=== PATIENT | male | born 1970 | race Two or more races ===

== ENCOUNTER 2018-05-19 03:17 | Inpatient (IN) | payer MEDICAID, OTHER ==
[2018-05-19] VITALS (55 sets, daily range): BP systolic 74–144; BP diastolic 36–87
[~2018-05-19] VITALS: Ht 172.7 cm; Wt 81.6 kg
[2018-05-19] MEDS ORDERED: ETOMIDATE 2MG/ML 10ML VIAL IV ONE ×2 (03:49→04:00)
[2018-05-19] MEDS ORDERED: SUCCINYLCHOLINE CHLORIDE 200MG/10ML IV ONE ×2 (03:49→04:00)
[2018-05-19] MEDS ORDERED: ONDANSETRON HCL 4MG/2ML INJ IV STA (03:51)
[2018-05-19] MEDS ORDERED: SODIUM CHLORIDE 0.9% 1,000 ML IV ONE (03:51)
[2018-05-19] MEDS ORDERED: MIDAZOLAM HCL 2 MG/2 ML VIAL ONE (03:59)
[2018-05-19] MEDS ORDERED: MIDAZOLAM HCL 2 MG/2 ML VIAL IV ONE (04:00)
[2018-05-19] MEDS ORDERED: LEVETIRACETAM 500MG PREMIX 100 ML IV SCH (04:00)
[2018-05-19] MEDS ORDERED: PROPOFOL 10MG/ML 100ML 100 ML IV ONE (04:00)
[2018-05-19] MEDS ORDERED: LEVETIRACETAM 500MG PREMIX 100 ML IV ONE (04:00)
[2018-05-19] MEDS ORDERED: NICARDIPINE 100 MG in SODIUM CHLORIDE 0.9% 60 ML IV ONE (04:15)
[2018-05-19] MEDS ORDERED: NICARDIPINE 40MG/200ML PREMIX 200 ML IV SCH (04:15)
[2018-05-19] MEDS ORDERED: NICARDIPINE 100 MG in SODIUM CHLORIDE 0.9% 60 ML IV SCH (04:15)
[2018-05-19 04:37] LABS: BASOPHILS % 0.3 % (0.0-2.0); EOSINOPHILS % 0.3 % (0.0-5.0); HEMATOCRIT. 42.8 % (42.0-52.0); HEMOGLOBIN. 15.2 g/dL (14.0-18.0); LYMPHOCYTES % 12.3 % (20.0-50.0); MEAN CORPUSCULAR HEMOGLOBIN 35.3 pg (28.0-32.0); MEAN CORPUSCULAR VOLUME 99.6 fL (80.0-94.0); MONOCYTES % 7.8 % (2.0-8.0); NEUTROPHILS % 79.3 % (40.0-76.0); RED CELL DISTRIBUTION WIDTH 14.9 % (11.6-14.6)
[2018-05-19 04:39] LABS: CHLORIDE 106 mEq/L (98-107)
[2018-05-19 04:42] LABS: INR 1.5
[2018-05-19 04:43] LABS: ETHANOL BLOOD 119 mg/dL
[2018-05-19 04:56] LABS: BG BASE EXCESS -6.6 mmol/L (-2.0-2.0); BG CARBOXYHEMOGLOBIN 0.9 % (0.5-1.5); BG DEOXYHEMOGLOBIN 0.5 % (0.0-5.0); BG FRACTION INSPIRED OXYGEN 100; BG HCO3 ACT 16.1 mmol/L (22.0-26.0); BG METHEMOGLOBIN 0.3 % (0.0-1.5); BG OXYGEN SATURATION 99.5 % (92.0-98.5); BG OXYHEMOGLOBIN 98.3 % (94.0-97.0); BG PCO2 26.2 mmHg (35.0-45.0); BG PH 7.406 (7.350-7.450); BG PO2 508.6 mmHg (75.0-100.0); BG SAMPLE SITE RIGHT RADIAL; BG TIDAL VOLUME(mL) 500 mL; BG TOTAL HEMOGLOBIN 16.3 g/dL (12.0-18.0); BG VENT MODE VENT - A/C; BG VENT RATE 16 set
[2018-05-19] MEDS ORDERED: DESMOPRESSIN ACETATE 4MCG/ML AMP IV ONE (05:45)
[2018-05-19] MEDS ORDERED: MANNITOL 20% (20GM/100ML) BAG 500ML PREMIX IV ONE (06:30)
[2018-05-19] MEDS ORDERED: DESMOPRESSIN ACETATE IVPB 20 MCG in SODIUM CHLORIDE 0.9% 50 ML IV SCH (06:30)
[2018-05-19] MEDS ORDERED: IOHEXOL-350 100 ML BOTTLE ONE (06:43)
[2018-05-19] MEDS ORDERED: DEXAMETHASONE 10 MG/ML VIAL IV ONE (07:00)
[2018-05-19] MEDS ORDERED: MANNITOL 20% 250 ML IV NR (07:15)
[2018-05-19] MEDS ORDERED: NICARDIPINE 100 MG in SODIUM CHLORIDE 0.9% 60 ML IV PRN (09:00)
[2018-05-19] MEDS ORDERED: IPRATROPIUM/ALBUTEROL 0.5-3(2.5)MG/3ML NEB INH PRN (09:00)
[2018-05-19] MEDS ORDERED: ACETAMINOPHEN 650MG SUPP PR PRN (09:00)
[2018-05-19] MEDS ORDERED: ONDANSETRON HCL 4MG/2ML INJ IV PRN (09:00)
[2018-05-19] MEDS ORDERED: PHYTONADIONE 10MG/ML AMP SUBCUT NR (09:15)
[2018-05-19] MEDS: DEXT 5%/LACTATED RINGERS 1,000 ML IV SCH ×2 (09:23→22:05)
[2018-05-19] MEDS: LEVETIRACETAM 500 MG in SODIUM CHLORIDE 0.9% 100 ML IV SCH ×2 (10:12→20:06)
[2018-05-19] MEDS: PHENYLEPHRINE 40 MG in DEXT 5% WATER 246 ML IV PRN ×2 (10:12→17:11)
[2018-05-19] MEDS ORDERED: NITROPRUSSIDE 50 MG in DEXT 5% WATER 248 ML IV PRN (10:30)
[2018-05-19 11:11] LABS: CLARITY URINE CLEAR (CLEAR); KETONES URINE NEGATIVE (NEGATIVE); LEUKOCYTE ESTERASE URINE NEGATIVE (NEGATIVE); NITRITE URINE NEGATIVE (NEGATIVE); OCCULT BLOOD URINE 2+ (NEGATIVE); PROTEIN URINE NEGATIVE (NEGATIVE); SPECIFIC GRAVITY URINE 1.031 (1.005-1.030); UROBILINOGEN URINE 0.2 E.U./dL (0.2-1.0)
[2018-05-19 11:13] LABS: COLOR URINE PALE YELLOW (YELLOW)
[2018-05-19 11:39] LABS: *AMPHETAMINES SCREEN URINE NEGATIVE (NEGATIVE); *BARBITURATES SCREEN URINE NEGATIVE (NEGATIVE); *BENZODIAZEPINES SCREEN URINE PRESUMTIVE POSITIVE (NEGATIVE); *COCAINE SCREEN URINE NEGATIVE (NEGATIVE); METHADONE URINE SCREEN NEGATIVE (NEGATIVE); OPIATES URINE SCREEN NEGATIVE (NEGATIVE)
[2018-05-19 11:40] LABS: CANNABINOID URINE SCREEN NEGATIVE (NEGATIVE); PHENCYCLIDINE URINE SCREEN NEGATIVE (NEGATIVE)
[2018-05-19] MEDS: IPRATROPIUM BROMIDE (0.02%) 0.5MG/2.5ML NEB HHN SCH ×3 (12:00→20:23)
[2018-05-19] MEDS ORDERED: NITROPRUSSIDE 50 MG in SODIUM CHLORIDE 0.9% 248 ML IV PRN (12:00)
[2018-05-19] MEDS: PANTOPRAZOLE SODIUM 40 MG/VIAL IV SCH (12:39)
[2018-05-19] MEDS: DEXAMETHASONE 4MG/ML 1ML VIAL IV SCH ×2 (12:39→17:13)
[2018-05-19] MEDS: PIPERACILLIN/TAZ 3.375G PREMIX 50 ML IV SCH ×2 (12:41→17:13)
[2018-05-19] MEDS ORDERED: VANCOMYCIN 1250MG in DEXTROSE 5% WATER 250ML IV SCH (13:00)
[2018-05-19] MEDS ORDERED: INFLUENZA VIRUS VACCINE(AFLURIA) 0.5ML SYR IM ONE (14:00)
[2018-05-19] MEDS ORDERED: PNEUMOCOCCAL 23-VAL P-SAC VAC 0.5 ML IM ONE (14:00)
[2018-05-19 15:49] LABS: BG BASE EXCESS 0.2 mmol/L (-2.0-2.0); BG CARBOXYHEMOGLOBIN 0.8 % (0.5-1.5); BG DEOXYHEMOGLOBIN 0.3 % (0.0-5.0); BG FRACTION INSPIRED OXYGEN 100; BG HCO3 ACT 26.4 mmol/L (22.0-26.0); BG METHEMOGLOBIN 0.4 % (0.0-1.5); BG OXYGEN SATURATION 99.7 % (92.0-98.5); BG OXYHEMOGLOBIN 98.5 % (94.0-97.0); BG PCO2 48.7 mmHg (35.0-45.0); BG PH 7.352 (7.350-7.450); BG PO2 481.8 mmHg (75.0-100.0); BG SAMPLE SITE RIGHT RADIAL; BG TIDAL VOLUME(mL) 500 mL; BG TOTAL HEMOGLOBIN 14.5 g/dL (12.0-18.0); BG VENT MODE VENT - A/C; BG VENT RATE 14 set
[2018-05-19 16:01] LABS: BG BASE EXCESS -7.3 mmol/L (-2.0-2.0); BG CARBOXYHEMOGLOBIN 0.9 % (0.5-1.5); BG DEOXYHEMOGLOBIN 0.5 % (0.0-5.0); BG FRACTION INSPIRED OXYGEN 70; BG HCO3 ACT 19.9 mmol/L (22.0-26.0); BG METHEMOGLOBIN 0.5 % (0.0-1.5); BG OXYGEN SATURATION 99.5 % (92.0-98.5); BG OXYHEMOGLOBIN 98.1 % (94.0-97.0); BG PCO2 46.4 mmHg (35.0-45.0); BG PO2 327.8 mmHg (75.0-100.0); BG SAMPLE SITE RIGHT RADIAL; BG TOTAL HEMOGLOBIN 14.1 g/dL (12.0-18.0); BG VENT MODE NASAL CANNULA
[2018-05-19] MEDS: VANCOMYCIN 1 G PREMIX 200 ML IV SCH (21:02)
[2018-05-20] VITALS (24 sets, daily range): BP systolic 97–115; BP diastolic 50–67
[2018-05-20] MEDS: DEXAMETHASONE 4MG/ML 1ML VIAL IV SCH ×2 (00:16→05:06)
[2018-05-20] MEDS: PIPERACILLIN/TAZ 3.375G PREMIX 50 ML IV SCH ×2 (00:16→05:06)
[2018-05-20] MEDS: IPRATROPIUM BROMIDE (0.02%) 0.5MG/2.5ML NEB HHN SCH ×5 (00:29→16:35)
[2018-05-20] MEDS: VANCOMYCIN 1 G PREMIX 200 ML IV SCH (05:06)
[2018-05-20] MEDS: LEVETIRACETAM 500 MG in SODIUM CHLORIDE 0.9% 100 ML IV SCH (08:17)
[2018-05-20] MEDS: PANTOPRAZOLE SODIUM 40 MG/VIAL IV SCH (08:17)
[2018-05-20 09:10] LABS: BG BASE EXCESS -0.2 mmol/L (-2.0-2.0); BG CARBOXYHEMOGLOBIN 0.7 % (0.5-1.5); BG DEOXYHEMOGLOBIN 0.4 % (0.0-5.0); BG HCO3 ACT 25.6 mmol/L (22.0-26.0); BG METHEMOGLOBIN 0.4 % (0.0-1.5); BG OXYGEN SATURATION 99.6 % (92.0-98.5); BG OXYHEMOGLOBIN 98.5 % (94.0-97.0); BG PCO2 45.9 mmHg (35.0-45.0); BG PH 7.364 (7.350-7.450); BG PO2 378.2 mmHg (75.0-100.0); BG SAMPLE SITE RIGHT RADIAL; BG TIDAL VOLUME(mL) 500 mL; BG TOTAL HEMOGLOBIN 13.9 g/dL (12.0-18.0); BG VENT MODE VENT - A/C; BG VENT RATE 14 set
[2018-05-20 09:24] LABS: BG BASE EXCESS 0.4 mmol/L (-2.0-2.0); BG CARBOXYHEMOGLOBIN 0.6 % (0.5-1.5); BG DEOXYHEMOGLOBIN 0.6 % (0.0-5.0); BG HCO3 ACT 29.4 mmol/L (22.0-26.0); BG METHEMOGLOBIN 0.4 % (0.0-1.5); BG OXYGEN SATURATION 99.4 % (92.0-98.5); BG OXYHEMOGLOBIN 98.4 % (94.0-97.0); BG PCO2 68.6 mmHg (35.0-45.0); BG PO2 314.9 mmHg (75.0-100.0); BG SAMPLE SITE RIGHT RADIAL; BG TOTAL HEMOGLOBIN 13.9 g/dL (12.0-18.0); BG VENT MODE NASAL CANNULA
[2018-05-20] MEDS ORDERED: MAGNESIUM 2 G PREMIX 50 ML IV SCH (14:00)
[2018-05-20] MEDS ORDERED: VANCOMYCIN 1 G PREMIX 200 ML IV SCH (18:00)
[2018-05-21 10:09] LABS: PLATELET 34 x1000/uL (130-400)
== END 2018-05-20 09:49 | disposition expired | DRG 720 ==
LOC: ER 03:17 → MICUSO 06:21 → EDBD 06:21 → EDBEDREQTM 06:25 → EDBEDREQ 06:25 → ENRESERV 07:50
PROVIDERS: ADMIT Internal Medicine; ATTEND Internal Medicine
PROC: 0BH17EZ Insertion of Endotracheal Airway into Trachea, Via Natural or Artificial Opening (ICD-10-PCS; principal; 2018-05-19)
PROC: 5A1945Z Respiratory Ventilation, 24-96 Consecutive Hours (ICD-10-PCS; 2018-05-19)
PROC: 30233L1 Transfusion of Nonautologous Fresh Plasma into Peripheral Vein, Percutaneous Approach (ICD-10-PCS; 2018-05-19)
PROC: 30233K1 Transfusion of Nonautologous Frozen Plasma into Peripheral Vein, Percutaneous Approach (ICD-10-PCS; 2018-05-19)
DX: A41.9 Sepsis, unspecified organism (principal); I61.8 Other nontraumatic intracerebral hemorrhage; E43 Unspecified severe protein-calorie malnutrition; J96.00 Acute respiratory failure, unspecified whether with hypoxia or hypercapnia; J69.0 Pneumonitis due to inhalation of food and vomit; G93.49 Other encephalopathy; K70.30 Alcoholic cirrhosis of liver without ascites; K70.9 Alcoholic liver disease, unspecified; D68.9 Coagulation defect, unspecified; D69.6 Thrombocytopenia, unspecified; E87.6 Hypokalemia; F10.229 Alcohol dependence with intoxication, unspecified; I48.0 Paroxysmal atrial fibrillation; Y90.5 Blood alcohol level of 100-119 mg/100 ml; R40.2430 Glasgow coma scale score 3-8, unspecified time; R73.9 Hyperglycemia, unspecified; Z68.27 Body mass index [BMI] 27.0-27.9, adult
CPT/HCPCS: 36415; 36430; 36600; 70496; 71045; 80202; 80305; 82375; 82805; 83605; 83735; 84478; 84484; 86850; 86900; 86927; 93005; 93306; 93970; 94002; 94003; 94640; 96365; 96375; 99285; C9113; G0482; J0330; J1100; J1953; J2250; J2370; J2405; J2543; J2597; J2704; J3370; J3430; J3475; J3490; J7030; J7040; J7050; J7060; J7121; P9017; Q9967; A4315

== ENCOUNTER 2018-05-20 17:03 | Inpatient (IN) | payer OTHER ==
[~2018-05-20] VITALS: Ht 162.6 cm; Wt 76.2 kg
[2018-05-20 19:00] VITALS: BP 92/53
[2018-05-20 20:41] VITALS: BP 83/43
[2018-05-20 20:54] LABS: BG BASE EXCESS -3.4 mmol/L (-2.0-2.0); BG CARBOXYHEMOGLOBIN 0.5 % (0.5-1.5); BG DEOXYHEMOGLOBIN 2.9 % (0.0-5.0); BG FRACTION INSPIRED OXYGEN 100; BG METHEMOGLOBIN 0.2 % (0.0-1.5); BG OXYGEN SATURATION 97.1 % (92.0-98.5); BG OXYHEMOGLOBIN 96.4 % (94.0-97.0); BG PCO2 46.3 mmHg (35.0-45.0); BG PH 7.314 (7.350-7.450); BG PO2 94.8 mmHg (75.0-100.0); BG SAMPLE SITE A-LINE; BG TIDAL VOLUME(mL) 500 mL; BG TOTAL HEMOGLOBIN 13.8 g/dL (12.0-18.0); BG VENT MODE VENT - A/C; BG VENT RATE 14 set
[2018-05-20 21:48] VITALS: BP 94/68
[2018-05-20] MEDS ORDERED: NOREPINEPHRINE 4 MG in DEXT 5% WATER 246 ML IV ONE (22:00)
[2018-05-20] MEDS: VASOPRESSIN 100 UNIT in SODIUM CHLORIDE 0.9% 95 ML IV SCH (22:22)
[2018-05-20 22:45] VITALS: BP 99/68
[2018-05-20 23:15] VITALS: BP 121/71
[2018-05-20 23:28] LABS: HEMATOCRIT. 40.9 % (42.0-52.0); HEMOGLOBIN. 13.7 g/dL (14.0-18.0); MEAN CORPUSCULAR HEMOGLOBIN 34.6 pg (28.0-32.0); MEAN CORPUSCULAR VOLUME 103.3 fL (80.0-94.0); MEAN PLATELET VOLUME 11.7 fl (7.4-10.4); RED BLOOD CELL COUNT 3.96 mill/uL (4.7-6.1); RED CELL DISTRIBUTION WIDTH 14.5 % (11.6-14.6)
[2018-05-20 23:30] VITALS: BP 123/66
[2018-05-20 23:34] LABS: CHLORIDE 114 mEq/L (98-107)
[2018-05-20 23:36] LABS: INR 1.5; PARTIAL THROMBOPLASTIN TIME 32.3 sec (23.4-31.0); PROTHROMBIN TIME 14.7 sec (9.1-11.1)
[2018-05-20 23:39] LABS: AMYLASE 154 IU/L (25-115); PLATELET 32 x1000/uL (130-400)
[2018-05-20 23:40] LABS: PHOSPHORUS 4.9 mg/dL (2.5-4.9)
[2018-05-20 23:43] LABS: CREATINE KINASE 106 IU/L (39-308); CREATINE KINASE MB FRACTION 1.6 ng/mL (0.5-3.6)
[2018-05-21] VITALS (64 sets, daily range): BP systolic 0–124; BP diastolic 0–84
[2018-05-21] MEDS: HETASTARCH/NORMAL SALINE 500 ML PLAST..BAG IV NR ×2 (00:23→01:15)
[2018-05-21 00:34] LABS: PLATELET ESTIMATE MARKEDLY DECREASED
[2018-05-21] MEDS: NOREPINEPHRINE 4MG/250ML PMX 250 ML IV SCH ×2 (02:00→08:51)
[2018-05-21 02:24] LABS: BG BASE EXCESS -4.7 mmol/L (-2.0-2.0); BG CARBOXYHEMOGLOBIN 0.9 % (0.5-1.5); BG FRACTION INSPIRED OXYGEN 60; BG HCO3 ACT 18.8 mmol/L (22.0-26.0); BG METHEMOGLOBIN 0.1 % (0.0-1.5); BG PCO2 30.4 mmHg (35.0-45.0); BG PH 7.408 (7.350-7.450); BG PO2 104.2 mmHg (75.0-100.0); BG SAMPLE SITE A-LINE; BG TOTAL HEMOGLOBIN 13.9 g/dL (12.0-18.0); BG VENT MODE VENT- BI-LEVEL14; BG VENT RATE 14 set
[2018-05-21] MEDS ORDERED: INSULIN REGULAR (HUMULIN R) 300UNITS/3ML IV SCH ×2 (02:37→04:37)
[2018-05-21] MEDS: DOBUTAMINE 250MG PREMIX 250 ML IV SCH (02:45)
[2018-05-21] MEDS ORDERED: LEVOTHYROXINE SODIUM 100 MCG/ VIAL IV STA (04:34)
[2018-05-21 05:41] LABS: BG BASE EXCESS -5.7 mmol/L (-2.0-2.0); BG CARBOXYHEMOGLOBIN 0.8 % (0.5-1.5); BG DEOXYHEMOGLOBIN 1.1 % (0.0-5.0); BG FRACTION INSPIRED OXYGEN 40; BG HCO3 ACT 18.9 mmol/L (22.0-26.0); BG METHEMOGLOBIN 0.3 % (0.0-1.5); BG OXYGEN SATURATION 98.9 % (92.0-98.5); BG OXYHEMOGLOBIN 97.8 % (94.0-97.0); BG PCO2 34.5 mmHg (35.0-45.0); BG PH 7.357 (7.350-7.450); BG PO2 153.5 mmHg (75.0-100.0); BG SAMPLE SITE A-LINE; BG TOTAL HEMOGLOBIN 14.6 g/dL (12.0-18.0); BG VENT MODE VENT- BI-LEVEL; BG VENT RATE 12 set
[2018-05-21] MEDS ORDERED: ALBUMIN HUMAN 25GM/100ML (25%) IV SCH (05:44)
[2018-05-21 05:45] LABS: HEMATOCRIT. 40.4 % (42.0-52.0); HEMOGLOBIN. 13.9 g/dL (14.0-18.0); MEAN CORPUSCULAR HEMOGLOBIN 35.4 pg (28.0-32.0); MEAN CORPUSCULAR VOLUME 103.1 fL (80.0-94.0); MEAN PLATELET VOLUME 10.8 fl (7.4-10.4); RED BLOOD CELL COUNT 3.92 mill/uL (4.7-6.1); RED CELL DISTRIBUTION WIDTH 14.9 % (11.6-14.6)
[2018-05-21 05:48] LABS: INR 1.6; PARTIAL THROMBOPLASTIN TIME 35.4 sec (23.4-31.0); PROTHROMBIN TIME 16.1 sec (9.1-11.1)
[2018-05-21 05:59] LABS: CHLORIDE 115 mEq/L (98-107)
[2018-05-21] MEDS ORDERED: SODIUM CHLORIDE 0.9% IV SCH ×2 (06:00)
[2018-05-21] MEDS ORDERED: LEVOTHYROXINE SODIUM IV SCH (06:00)
[2018-05-21] MEDS ORDERED: METHYLPREDNISOLONE SOD SUCC IV SCH (06:00)
[2018-05-21 06:10] LABS: GAMMA GLUTAMYL TRANSPEPTIDASE 100 IU/L (11-50)
[2018-05-21 06:11] LABS: AMYLASE 454 IU/L (25-115)
[2018-05-21 06:12] LABS: PHOSPHORUS 3.5 mg/dL (2.5-4.9)
[2018-05-21 06:15] LABS: CREATINE KINASE 86 IU/L (39-308)
[2018-05-21 06:17] LABS: CREATINE KINASE MB FRACTION 1.5 ng/mL (0.5-3.6)
[2018-05-21 06:32] LABS: PLATELET 41 x1000/uL (130-400)
[2018-05-21] MEDS ORDERED: LIDOCAINE HCL 1% 20ML VIAL (Pyxis) INJ ONE (08:09)
[2018-05-21] MEDS ORDERED: HEPARIN 100 UNITS/1 ML VIAL IVF PRN (09:00)
[2018-05-21] MEDS ORDERED: HETASTARCH/NORMAL SALINE 500 ML PLAST..BAG IV NR (10:30)
[2018-05-21] MEDS: PIPERACILLIN/TAZ 2.25G PREMIX 50 ML IV SCH ×2 (10:57→17:13)
[2018-05-21] MEDS: INSULIN REGULAR (DRIP) 100 UNITS in SODIUM CHLORIDE 0.9% 99 ML IV PRN ×2 (11:35→19:03)
[2018-05-21 12:12] LABS: ATYPICAL LYMPHOCYTES 1; NUCLEATED RED BLOOD CELLS 1 /100 WBC; PLATELET ESTIMATE MARKEDLY DECREASED
[2018-05-21 12:16] LABS: BG BASE EXCESS -5.4 mmol/L (-2.0-2.0); BG CARBOXYHEMOGLOBIN 0.7 % (0.5-1.5); BG FRACTION INSPIRED OXYGEN 40; BG HCO3 ACT 18.9 mmol/L (22.0-26.0); BG METHEMOGLOBIN 0.3 % (0.0-1.5); BG PCO2 33.1 mmHg (35.0-45.0); BG PH 7.374 (7.350-7.450); BG PO2 176.3 mmHg (75.0-100.0); BG SAMPLE SITE A-LINE; BG TOTAL HEMOGLOBIN 12.7 g/dL (12.0-18.0); BG VENT MODE VENT - BI-LEVEL; BG VENT RATE 14 set
[2018-05-21 12:53] LABS: CHLORIDE 115 mEq/L (98-107)
[2018-05-21 12:54] LABS: INR 1.7; PARTIAL THROMBOPLASTIN TIME 40.4 sec (23.4-31.0); PROTHROMBIN TIME 17.1 sec (9.1-11.1)
[2018-05-21 13:02] LABS: AMYLASE 547 IU/L (25-115); PHOSPHORUS 4.6 mg/dL (2.5-4.9)
[2018-05-21 13:05] LABS: CREATINE KINASE 69 IU/L (39-308); CREATINE KINASE MB FRACTION 1.9 ng/mL (0.5-3.6); GAMMA GLUTAMYL TRANSPEPTIDASE 78 IU/L (11-50)
[2018-05-21 13:07] LABS: HEMATOCRIT. 35.4 % (42.0-52.0); HEMOGLOBIN. 12.1 g/dL (14.0-18.0); MEAN CORPUSCULAR HEMOGLOBIN 35.5 pg (28.0-32.0); MEAN CORPUSCULAR VOLUME 103.6 fL (80.0-94.0); MEAN PLATELET VOLUME 11.1 fl (7.4-10.4); RED BLOOD CELL COUNT 3.42 mill/uL (4.7-6.1)
[2018-05-21] MEDS: METHYLPREDNISOLONE SOD SUCC 500 MG in SODIUM CHLORIDE 0.9% 100 ML IV SCH ×2 (13:09→20:55)
[2018-05-21 13:14] LABS: PLATELET 30 x1000/uL (130-400)
[2018-05-21] MEDS ORDERED: CALCIUM GLUCONATE 1,000 MG in DEXT 5% WATER 90 ML IV SCH (13:45)
[2018-05-21] MEDS ORDERED: FUROSEMIDE 40MG/4ML VIAL IVP NR ×2 (13:45→22:30)
[2018-05-21] MEDS ORDERED: ALBUMIN HUMAN 25GM/100ML (25%) IV NR (13:45)
[2018-05-21 13:57] LABS: PLATELET ESTIMATE MARKEDLY DECREASED
[2018-05-21] MEDS ORDERED: PIPERACILLIN/TAZOBACTAM 2.25 G in DEXTROSE 5% WATER 50 ML IV SCH (14:00)
[2018-05-21] MEDS ORDERED: INSULIN REGULAR (HUMULIN R) 300UNITS/3ML IV NR ×3 (15:00→20:45)
[2018-05-21] MEDS: LEVOTHYROXINE SODIUM IV SCH ×2 (15:51→22:12)
[2018-05-21] MEDS: SODIUM CHLORIDE 0.9% IV SCH ×2 (15:51→22:12)
[2018-05-21] MEDS ORDERED: METOLAZONE 10MG TABLET PO SCH (17:00)
[2018-05-21] MEDS ORDERED: FUROSEMIDE 100MG/10ML VIAL IVP SCH (17:30)
[2018-05-21 18:21] LABS: BG BASE EXCESS -4.6 mmol/L (-2.0-2.0); BG CARBOXYHEMOGLOBIN 0.2 % (0.5-1.5); BG DEOXYHEMOGLOBIN 0.9 % (0.0-5.0); BG FRACTION INSPIRED OXYGEN 40; BG HCO3 ACT 18.9 mmol/L (22.0-26.0); BG METHEMOGLOBIN 0.3 % (0.0-1.5); BG OXYGEN SATURATION 99.1 % (92.0-98.5); BG OXYHEMOGLOBIN 98.6 % (94.0-97.0); BG PCO2 30.5 mmHg (35.0-45.0); BG PH 7.411 (7.350-7.450); BG PO2 192.6 mmHg (75.0-100.0); BG SAMPLE SITE A-LINE; BG TOTAL HEMOGLOBIN 12.3 g/dL (12.0-18.0); BG VENT MODE VENT - BI-LEVEL; BG VENT RATE 10 set
[2018-05-21 18:28] LABS: HEMATOCRIT. 35.1 % (42.0-52.0); HEMOGLOBIN. 12.1 g/dL (14.0-18.0); MEAN CORPUSCULAR HEMOGLOBIN 35.4 pg (28.0-32.0); RED BLOOD CELL COUNT 3.41 mill/uL (4.7-6.1); RED CELL DISTRIBUTION WIDTH 15.4 % (11.6-14.6)
[2018-05-21 18:30] LABS: PLATELET 33 x1000/uL (130-400)
[2018-05-21 18:34] LABS: CHLORIDE 113 mEq/L (98-107)
[2018-05-21 18:36] LABS: INR 1.7; PARTIAL THROMBOPLASTIN TIME 42.4 sec (23.4-31.0); PROTHROMBIN TIME 17.4 sec (9.1-11.1)
[2018-05-21 18:39] LABS: AMYLASE 576 IU/L (25-115)
[2018-05-21 18:41] LABS: GAMMA GLUTAMYL TRANSPEPTIDASE 74 IU/L (11-50)
[2018-05-21 18:45] LABS: CREATINE KINASE 328 IU/L (39-308); CREATINE KINASE MB FRACTION 4.7 ng/mL (0.5-3.6)
[2018-05-21] MEDS ORDERED: DOPAMINE 800MG PREMIX 250 ML IV PRN (19:00)
[2018-05-21 19:24] LABS: PLATELET ESTIMATE MARKEDLY DECREASED
[2018-05-22] VITALS (59 sets, daily range): BP systolic 53–262; BP diastolic 44–140
[2018-05-22 00:48] LABS: BASOPHILS % 0.1 % (0.0-2.0); HEMATOCRIT. 38.5 % (42.0-52.0); HEMOGLOBIN. 12.9 g/dL (14.0-18.0); LYMPHOCYTES % 3.9 % (20.0-50.0); MEAN CORPUSCULAR HEMOGLOBIN 34.8 pg (28.0-32.0); MEAN CORPUSCULAR VOLUME 103.6 fL (80.0-94.0); MEAN PLATELET VOLUME 10.9 fl (7.4-10.4); MONOCYTES % 7.9 % (2.0-8.0); NEUTROPHILS % 88.1 % (40.0-76.0); RED BLOOD CELL COUNT 3.72 mill/uL (4.7-6.1); RED CELL DISTRIBUTION WIDTH 15.5 % (11.6-14.6)
[2018-05-22 00:58] LABS: PLATELET 32 x1000/uL (130-400)
[2018-05-22 01:06] LABS: INR 1.8; PROTHROMBIN TIME 17.7 sec (9.1-11.1)
[2018-05-22 01:17] LABS: CHLORIDE 115 mEq/L (98-107)
[2018-05-22 01:22] LABS: PHOSPHORUS 5.1 mg/dL (2.5-4.9)
[2018-05-22 01:25] LABS: CREATINE KINASE 491 IU/L (39-308); GAMMA GLUTAMYL TRANSPEPTIDASE 82 IU/L (11-50)
[2018-05-22 01:26] LABS: CREATINE KINASE MB FRACTION 9.4 ng/mL (0.5-3.6)
[2018-05-22 01:33] LABS: AMYLASE 742 IU/L (25-115)
[2018-05-22] MEDS: PIPERACILLIN/TAZ 2.25G PREMIX 50 ML IV SCH ×3 (02:09→18:05)
[2018-05-22] MEDS: METHYLPREDNISOLONE SOD SUCC 500 MG in SODIUM CHLORIDE 0.9% 100 ML IV SCH ×3 (05:09→21:02)
[2018-05-22 05:12] LABS: BG BASE EXCESS -4.3 mmol/L (-2.0-2.0); BG CARBOXYHEMOGLOBIN 0.8 % (0.5-1.5); BG DEOXYHEMOGLOBIN 1.7 % (0.0-5.0); BG FRACTION INSPIRED OXYGEN 30; BG HCO3 ACT 20.1 mmol/L (22.0-26.0); BG METHEMOGLOBIN 0.3 % (0.0-1.5); BG OXYGEN SATURATION 98.3 % (92.0-98.5); BG OXYHEMOGLOBIN 97.2 % (94.0-97.0); BG PH 7.377 (7.350-7.450); BG PO2 117.3 mmHg (75.0-100.0); BG SAMPLE SITE A-LINE; BG TOTAL HEMOGLOBIN 13.2 g/dL (12.0-18.0); BG VENT MODE BILEVEL; BG VENT RATE 8.5 set
[2018-05-22 05:46] LABS: CHLORIDE 114 mEq/L (98-107)
[2018-05-22 05:50] LABS: GAMMA GLUTAMYL TRANSPEPTIDASE 79 IU/L (11-50)
[2018-05-22 05:52] LABS: PHOSPHORUS 4.9 mg/dL (2.5-4.9)
[2018-05-22 05:53] LABS: HEMATOCRIT. 37.1 % (42.0-52.0); HEMOGLOBIN. 12.6 g/dL (14.0-18.0); MEAN CORPUSCULAR HEMOGLOBIN 35.4 pg (28.0-32.0); MEAN CORPUSCULAR VOLUME 104.5 fL (80.0-94.0); MEAN PLATELET VOLUME 11.5 fl (7.4-10.4); RED BLOOD CELL COUNT 3.55 mill/uL (4.7-6.1); RED CELL DISTRIBUTION WIDTH 15.8 % (11.6-14.6)
[2018-05-22 05:56] LABS: AMYLASE 764 IU/L (25-115); CREATINE KINASE 596 IU/L (39-308); CREATINE KINASE MB FRACTION 10.6 ng/mL (0.5-3.6)
[2018-05-22 05:59] LABS: CLARITY URINE CLOUDY (CLEAR); COLOR URINE DARK YELLOW (YELLOW); KETONES URINE NEGATIVE (NEGATIVE); LEUKOCYTE ESTERASE URINE 1+ (NEGATIVE); NITRITE URINE NEGATIVE (NEGATIVE); OCCULT BLOOD URINE 2+ (NEGATIVE); PROTEIN URINE NEGATIVE (NEGATIVE); SPECIFIC GRAVITY URINE 1.021 (1.005-1.030); UROBILINOGEN URINE 0.2 E.U./dL (0.2-1.0)
[2018-05-22] MEDS ORDERED: ALBUMIN HUMAN 25GM/100ML (25%) IV SCH ×2 (06:09→11:15)
[2018-05-22] MEDS: VASOPRESSIN 100 UNIT in SODIUM CHLORIDE 0.9% 95 ML IV SCH (06:12)
[2018-05-22] MEDS: INSULIN REGULAR (DRIP) 100 UNITS in SODIUM CHLORIDE 0.9% 99 ML IV PRN ×2 (06:13→17:14)
[2018-05-22 06:16] LABS: PLATELET 36 x1000/uL (130-400)
[2018-05-22] MEDS ORDERED: CALCIUM GLUCONATE 100MG/ML 10ML VIAL IV SCH (06:30)
[2018-05-22 07:05] LABS: INR 1.7; PARTIAL THROMBOPLASTIN TIME 44.4 sec (23.4-31.0); PROTHROMBIN TIME 17.3 sec (9.1-11.1)
[2018-05-22] MEDS ORDERED: LIDOCAINE HCL 1% 20ML VIAL (Pyxis) INJ ONE (07:54)
[2018-05-22] MEDS: LEVOTHYROXINE SODIUM IV SCH ×2 (09:07→20:50)
[2018-05-22] MEDS: SODIUM CHLORIDE 0.9% IV SCH ×2 (09:07→20:50)
[2018-05-22 09:47] LABS: PLATELET ESTIMATE MARKEDLY DECREASED
[2018-05-22] MEDS ORDERED: INSULIN REGULAR (HUMULIN R) 300UNITS/3ML IV NR ×2 (10:05→20:00)
[2018-05-22 12:30] LABS: BG BASE EXCESS -5.3 mmol/L (-2.0-2.0); BG CARBOXYHEMOGLOBIN 0.8 % (0.5-1.5); BG HCO3 ACT 19.2 mmol/L (22.0-26.0); BG METHEMOGLOBIN 0.2 % (0.0-1.5); BG PCO2 34.3 mmHg (35.0-45.0); BG PH 7.366 (7.350-7.450); BG PIP 10 cmH2O; BG PO2 110.6 mmHg (75.0-100.0); BG SAMPLE SITE A-LINE; BG TOTAL HEMOGLOBIN 12.8 g/dL (12.0-18.0); BG TOTAL RESPIRATORY RATE 8.5 b/min; BG VENT MODE VENT - PCV; BG VENT RATE 8.5 set
[2018-05-22 12:48] LABS: HEMATOCRIT. 35.2 % (42.0-52.0); HEMOGLOBIN. 12.3 g/dL (14.0-18.0); MEAN CORPUSCULAR HEMOGLOBIN 35.9 pg (28.0-32.0); MEAN CORPUSCULAR VOLUME 103.2 fL (80.0-94.0); RED BLOOD CELL COUNT 3.41 mill/uL (4.7-6.1); RED CELL DISTRIBUTION WIDTH 15.4 % (11.6-14.6)
[2018-05-22 12:50] LABS: CHLORIDE 115 mEq/L (98-107)
[2018-05-22 12:55] LABS: INR 1.7; PARTIAL THROMBOPLASTIN TIME 42.5 sec (23.4-31.0); PROTHROMBIN TIME 16.8 sec (9.1-11.1)
[2018-05-22 12:57] LABS: GAMMA GLUTAMYL TRANSPEPTIDASE 79 IU/L (11-50)
[2018-05-22 12:58] LABS: PLATELET 37 x1000/uL (130-400)
[2018-05-22 13:01] LABS: CREATINE KINASE 602 IU/L (39-308); CREATINE KINASE MB FRACTION 10.1 ng/mL (0.5-3.6)
[2018-05-22 13:03] LABS: AMYLASE 755 IU/L (25-115)
[2018-05-22 13:11] LABS: PLATELET ESTIMATE MARKEDLY DECREASED
[2018-05-22 13:25] LABS: CLARITY URINE CLOUDY (CLEAR); COLOR URINE DARK YELLOW (YELLOW); KETONES URINE TRACE (NEGATIVE); LEUKOCYTE ESTERASE URINE NEGATIVE (NEGATIVE); NITRITE URINE NEGATIVE (NEGATIVE); OCCULT BLOOD URINE 3+ (NEGATIVE); PROTEIN URINE 1+ (NEGATIVE); SPECIFIC GRAVITY URINE 1.025 (1.005-1.030)
[2018-05-22] MEDS: NOREPINEPHRINE 4MG in DEXT 5% WATER 250ML IV PRN ×2 (14:00→18:29)
[2018-05-22] MEDS ORDERED: KCL 20MEQ/100ML PREMIX 100 ML IV SCH ×2 (14:30)
[2018-05-22 18:24] LABS: HEMATOCRIT. 35.2 % (42.0-52.0); MEAN CORPUSCULAR HEMOGLOBIN 35.1 pg (28.0-32.0); MEAN CORPUSCULAR VOLUME 103.1 fL (80.0-94.0); MEAN PLATELET VOLUME 11.9 fl (7.4-10.4); RED BLOOD CELL COUNT 3.41 mill/uL (4.7-6.1); RED CELL DISTRIBUTION WIDTH 15.5 % (11.6-14.6)
[2018-05-22 18:33] LABS: PLATELET 42 x1000/uL (130-400)
[2018-05-22 18:35] LABS: CHLORIDE 103 mEq/L (98-107)
[2018-05-22 18:39] LABS: GAMMA GLUTAMYL TRANSPEPTIDASE 82 IU/L (11-50); PHOSPHORUS 5.4 mg/dL (2.5-4.9)
[2018-05-22 18:43] LABS: INR 1.7; PARTIAL THROMBOPLASTIN TIME 47.8 sec (23.4-31.0); PROTHROMBIN TIME 17.1 sec (9.1-11.1)
[2018-05-22 18:44] LABS: AMYLASE 839 IU/L (25-115); CREATINE KINASE 571 IU/L (39-308); CREATINE KINASE MB FRACTION 8.2 ng/mL (0.5-3.6)
[2018-05-22 18:54] LABS: PLATELET ESTIMATE MARKEDLY DECREASED
[2018-05-22 19:25] LABS: BG BASE EXCESS -3.3 mmol/L (-2.0-2.0); BG CARBOXYHEMOGLOBIN 0.2 % (0.5-1.5); BG DEOXYHEMOGLOBIN 1.2 % (0.0-5.0); BG FRACTION INSPIRED OXYGEN 30; BG HCO3 ACT 20.6 mmol/L (22.0-26.0); BG METHEMOGLOBIN 0.3 % (0.0-1.5); BG OXYGEN SATURATION 98.8 % (92.0-98.5); BG OXYHEMOGLOBIN 98.3 % (94.0-97.0); BG PCO2 33.2 mmHg (35.0-45.0); BG PO2 144.7 mmHg (75.0-100.0); BG SAMPLE SITE A-LINE; BG TOTAL HEMOGLOBIN 11.8 g/dL (12.0-18.0); BG VENT MODE VENT - PCV
[2018-05-23] VITALS (101 sets, daily range): BP systolic 52–249; BP diastolic -6–167
[2018-05-23 00:25] LABS: BG BASE EXCESS -1.9 mmol/L (-2.0-2.0); BG CARBOXYHEMOGLOBIN 0.3 % (0.5-1.5); BG DEOXYHEMOGLOBIN 1.7 % (0.0-5.0); BG FRACTION INSPIRED OXYGEN 30; BG HCO3 ACT 21.9 mmol/L (22.0-26.0); BG METHEMOGLOBIN 0.3 % (0.0-1.5); BG OXYGEN SATURATION 98.3 % (92.0-98.5); BG OXYHEMOGLOBIN 97.7 % (94.0-97.0); BG PH 7.427 (7.350-7.450); BG PIP 28 cmH2O; BG PO2 125.5 mmHg (75.0-100.0); BG SAMPLE SITE A-LINE; BG TIDAL VOLUME(mL) 737 mL; BG TOTAL HEMOGLOBIN 11.2 g/dL (12.0-18.0); BG VENT MODE BI LEVEL
[2018-05-23 00:35] LABS: BASOPHILS % 0.1 % (0.0-2.0); EOSINOPHILS % 0.2 % (0.0-5.0); HEMATOCRIT. 31.7 % (42.0-52.0); LYMPHOCYTES % 5.4 % (20.0-50.0); MEAN CORPUSCULAR HEMOGLOBIN 35.7 pg (28.0-32.0); MEAN CORPUSCULAR VOLUME 102.5 fL (80.0-94.0); MEAN PLATELET VOLUME 11.4 fl (7.4-10.4); MONOCYTES % 9.7 % (2.0-8.0); NEUTROPHILS % 84.6 % (40.0-76.0); RED BLOOD CELL COUNT 3.09 mill/uL (4.7-6.1); RED CELL DISTRIBUTION WIDTH 15.3 % (11.6-14.6)
[2018-05-23 00:49] LABS: PLATELET 35 x1000/uL (130-400)
[2018-05-23 00:50] LABS: CHLORIDE 106 mEq/L (98-107)
[2018-05-23 00:54] LABS: GAMMA GLUTAMYL TRANSPEPTIDASE 80 IU/L (11-50); PHOSPHORUS 5.5 mg/dL (2.5-4.9)
[2018-05-23 01:00] LABS: AMYLASE 806 IU/L (25-115); CREATINE KINASE 512 IU/L (39-308); CREATINE KINASE MB FRACTION 7.1 ng/mL (0.5-3.6)
[2018-05-23] MEDS: INSULIN REGULAR (DRIP) 100 UNITS in SODIUM CHLORIDE 0.9% 99 ML IV PRN ×4 (01:06→22:43)
[2018-05-23 01:07] LABS: INR 1.8; PARTIAL THROMBOPLASTIN TIME 45.7 sec (23.4-31.0)
[2018-05-23] MEDS: PIPERACILLIN/TAZ 2.25G PREMIX 50 ML IV SCH ×3 (01:50→18:24)
[2018-05-23] MEDS: LEVOTHYROXINE SODIUM IV SCH ×4 (02:03→21:53)
[2018-05-23] MEDS: SODIUM CHLORIDE 0.9% IV SCH ×4 (02:03→21:53)
[2018-05-23] MEDS: DOBUTAMINE 250MG PREMIX 250 ML IV SCH (02:04)
[2018-05-23] MEDS ORDERED: KCL 20MEQ/100ML PREMIX 100 ML IV NR (04:00)
[2018-05-23 06:07] LABS: BG BASE EXCESS -2.7 mmol/L (-2.0-2.0); BG CARBOXYHEMOGLOBIN 0.1 % (0.5-1.5); BG DEOXYHEMOGLOBIN 2.2 % (0.0-5.0); BG FRACTION INSPIRED OXYGEN 30; BG HCO3 ACT 21.7 mmol/L (22.0-26.0); BG METHEMOGLOBIN 0.3 % (0.0-1.5); BG OXYGEN SATURATION 97.8 % (92.0-98.5); BG OXYHEMOGLOBIN 97.4 % (94.0-97.0); BG PCO2 36.4 mmHg (35.0-45.0); BG PH 7.394 (7.350-7.450); BG PIP 28 cmH2O; BG PO2 114.6 mmHg (75.0-100.0); BG SAMPLE SITE A-LINE; BG TIDAL VOLUME(mL) 758 mL; BG TOTAL HEMOGLOBIN 11.5 g/dL (12.0-18.0); BG VENT MODE BI LEVEL; BG VENT RATE 8 set
[2018-05-23 06:44] LABS: CHLORIDE 108 mEq/L (98-107)
[2018-05-23 06:48] LABS: GAMMA GLUTAMYL TRANSPEPTIDASE 81 IU/L (11-50)
[2018-05-23 06:49] LABS: INR 1.8; PARTIAL THROMBOPLASTIN TIME 48.7 sec (23.4-31.0); PROTHROMBIN TIME 17.7 sec (9.1-11.1)
[2018-05-23 06:53] LABS: AMYLASE 686 IU/L (25-115); CREATINE KINASE 517 IU/L (39-308); CREATINE KINASE MB FRACTION 5.8 ng/mL (0.5-3.6)
[2018-05-23 06:58] LABS: HEMOGLOBIN. 10.8 g/dL (14.0-18.0); MEAN PLATELET VOLUME 11.2 fl (7.4-10.4); RED BLOOD CELL COUNT 3.01 mill/uL (4.7-6.1); RED CELL DISTRIBUTION WIDTH 15.5 % (11.6-14.6)
[2018-05-23 07:09] LABS: CLARITY URINE TURBID (CLEAR); COLOR URINE AMBER (YELLOW); SPECIFIC GRAVITY URINE 1.047 (1.005-1.030)
[2018-05-23 07:10] LABS: KETONES URINE TRACE (NEGATIVE); LEUKOCYTE ESTERASE URINE 1+ (NEGATIVE); NITRITE URINE NEGATIVE (NEGATIVE); OCCULT BLOOD URINE 3+ (NEGATIVE); PROTEIN URINE 2+ (NEGATIVE)
[2018-05-23] MEDS: METHYLPREDNISOLONE SOD SUCC 500 MG in SODIUM CHLORIDE 0.9% 100 ML IV SCH ×3 (07:15→22:21)
[2018-05-23 07:23] LABS: PLATELET 32 x1000/uL (130-400)
[2018-05-23] MEDS ORDERED: KCL 20MEQ/100ML PREMIX 100 ML IV SCH ×3 (07:30→13:00)
[2018-05-23 08:30] LABS: NUCLEATED RED BLOOD CELLS 1 /100 WBC
[2018-05-23] MEDS ORDERED: ALBUMIN HUMAN 25GM/100ML (25%) IV NR ×2 (08:30→11:30)
[2018-05-23 08:31] LABS: PLATELET ESTIMATE MARKEDLY DECREASED
[2018-05-23] MEDS ORDERED: PHYTONADIONE 10MG/ML AMP IV NR (08:45)
[2018-05-23] MEDS ORDERED: VANCOMYCIN 1 G PREMIX 200 ML IV SCH (09:00)
[2018-05-23] MEDS: ALBUMIN HUMAN 25GM/100ML (25%) IV NR ×2 (12:10→12:11)
[2018-05-23 12:37] LABS: CHLORIDE 101 mEq/L (98-107)
[2018-05-23 12:39] LABS: HEMOGLOBIN. 11.8 g/dL (14.0-18.0); MEAN CORPUSCULAR HEMOGLOBIN 35.4 pg (28.0-32.0); MEAN PLATELET VOLUME 12.2 fl (7.4-10.4); RED BLOOD CELL COUNT 3.33 mill/uL (4.7-6.1); RED CELL DISTRIBUTION WIDTH 15.3 % (11.6-14.6)
[2018-05-23 12:42] LABS: PLATELET 37 x1000/uL (130-400)
[2018-05-23 12:43] LABS: PHOSPHORUS 3.4 mg/dL (2.5-4.9)
[2018-05-23 12:47] LABS: CREATINE KINASE 566 IU/L (39-308)
[2018-05-23 12:48] LABS: CREATINE KINASE MB FRACTION 6.3 ng/mL (0.5-3.6)
[2018-05-23 12:49] LABS: GAMMA GLUTAMYL TRANSPEPTIDASE 93 IU/L (11-50)
[2018-05-23 12:51] LABS: AMYLASE 760 IU/L (25-115)
[2018-05-23 12:54] LABS: CLARITY URINE TURBID (CLEAR); COLOR URINE DARK YELLOW (YELLOW); KETONES URINE NEGATIVE (NEGATIVE); LEUKOCYTE ESTERASE URINE 1+ (NEGATIVE); NITRITE URINE NEGATIVE (NEGATIVE); OCCULT BLOOD URINE 3+ (NEGATIVE); PROTEIN URINE 2+ (NEGATIVE); SPECIFIC GRAVITY URINE 1.026 (1.005-1.030); UROBILINOGEN URINE 0.2 E.U./dL (0.2-1.0)
[2018-05-23 13:05] LABS: NUCLEATED RED BLOOD CELLS 1 /100 WBC; PLATELET ESTIMATE MARKEDLY DECREASED
[2018-05-23 14:47] LABS: BG BASE EXCESS -5.5 mmol/L (-2.0-2.0); BG CARBOXYHEMOGLOBIN 0.3 % (0.5-1.5); BG DEOXYHEMOGLOBIN 0.2 % (0.0-5.0); BG FRACTION INSPIRED OXYGEN 100; BG HCO3 ACT 18.6 mmol/L (22.0-26.0); BG METHEMOGLOBIN 0.3 % (0.0-1.5); BG OXYGEN SATURATION 99.8 % (92.0-98.5); BG OXYHEMOGLOBIN 99.2 % (94.0-97.0); BG PCO2 32.1 mmHg (35.0-45.0); BG PH 7.382 (7.350-7.450); BG PO2 566.9 mmHg (75.0-100.0); BG SAMPLE SITE A-LINE; BG TOTAL HEMOGLOBIN 11.2 g/dL (12.0-18.0); BG VENT MODE BI LEVEL
[2018-05-23 15:49] LABS: INR 1.7; PARTIAL THROMBOPLASTIN TIME 46.6 sec (23.4-31.0); PROTHROMBIN TIME 17.2 sec (9.1-11.1)
[2018-05-23 18:47] LABS: CLARITY URINE CLOUDY (CLEAR); COLOR URINE DARK YELLOW (YELLOW); KETONES URINE TRACE (NEGATIVE); LEUKOCYTE ESTERASE URINE NEGATIVE (NEGATIVE); NITRITE URINE NEGATIVE (NEGATIVE); OCCULT BLOOD URINE 3+ (NEGATIVE); PROTEIN URINE 2+ (NEGATIVE)
[2018-05-23 18:51] LABS: BASOPHILS % 0.1 % (0.0-2.0); EOSINOPHILS % 0.1 % (0.0-5.0); HEMATOCRIT. 32.6 % (42.0-52.0); HEMOGLOBIN. 11.3 g/dL (14.0-18.0); LYMPHOCYTES % 3.7 % (20.0-50.0); MEAN CORPUSCULAR HEMOGLOBIN 35.9 pg (28.0-32.0); MEAN CORPUSCULAR VOLUME 103.3 fL (80.0-94.0); MEAN PLATELET VOLUME 11.1 fl (7.4-10.4); MONOCYTES % 8.8 % (2.0-8.0); NEUTROPHILS % 87.3 % (40.0-76.0); RED BLOOD CELL COUNT 3.16 mill/uL (4.7-6.1); RED CELL DISTRIBUTION WIDTH 15.4 % (11.6-14.6)
[2018-05-23 18:53] LABS: INR 1.7; PARTIAL THROMBOPLASTIN TIME 44.5 sec (23.4-31.0); PROTHROMBIN TIME 16.6 sec (9.1-11.1)
[2018-05-23 19:05] LABS: PLATELET 32 x1000/uL (130-400)
[2018-05-23 19:07] LABS: CHLORIDE 100 mEq/L (98-107)
[2018-05-23 19:11] LABS: GAMMA GLUTAMYL TRANSPEPTIDASE 89 IU/L (11-50)
[2018-05-23 19:12] LABS: AMYLASE 640 IU/L (25-115)
[2018-05-23 19:13] LABS: PHOSPHORUS 5.2 mg/dL (2.5-4.9)
[2018-05-23 19:14] LABS: CREATINE KINASE 448 IU/L (39-308)
[2018-05-23 19:17] LABS: CREATINE KINASE MB FRACTION 4.6 ng/mL (0.5-3.6)
[2018-05-23] MEDS: VASOPRESSIN 100 UNIT in SODIUM CHLORIDE 0.9% 95 ML IV SCH (21:54)
[2018-05-23] MEDS: NOREPINEPHRINE 4MG in DEXT 5% WATER 250ML IV PRN (21:55)
[2018-05-23] MEDS ORDERED: SODIUM CHLORIDE 0.9% 1,000 ML IV STA (22:15)
[2018-05-23 22:36] LABS: BG BASE EXCESS -1.7 mmol/L (-2.0-2.0); BG CARBOXYHEMOGLOBIN 0.5 % (0.5-1.5); BG DEOXYHEMOGLOBIN 1.3 % (0.0-5.0); BG FRACTION INSPIRED OXYGEN 40; BG HCO3 ACT 24.5 mmol/L (22.0-26.0); BG METHEMOGLOBIN 0.3 % (0.0-1.5); BG OXYGEN SATURATION 98.7 % (92.0-98.5); BG OXYHEMOGLOBIN 97.9 % (94.0-97.0); BG PCO2 47.7 mmHg (35.0-45.0); BG PH 7.329 (7.350-7.450); BG PO2 154.7 mmHg (75.0-100.0); BG SAMPLE SITE A-LINE; BG TIDAL VOLUME(mL) 650 mL; BG TOTAL HEMOGLOBIN 11.7 g/dL (12.0-18.0); BG VENT MODE VENT - SIMV; BG VENT RATE 10 set
[2018-05-23 23:13] LABS: BG BASE EXCESS -2.7 mmol/L (-2.0-2.0); BG CARBOXYHEMOGLOBIN 0.3 % (0.5-1.5); BG DEOXYHEMOGLOBIN 0.3 % (0.0-5.0); BG FRACTION INSPIRED OXYGEN 100; BG HCO3 ACT 23.5 mmol/L (22.0-26.0); BG METHEMOGLOBIN 0.3 % (0.0-1.5); BG OXYGEN SATURATION 99.7 % (92.0-98.5); BG OXYHEMOGLOBIN 99.1 % (94.0-97.0); BG PCO2 46.5 mmHg (35.0-45.0); BG PH 7.321 (7.350-7.450); BG PO2 509.8 mmHg (75.0-100.0); BG SAMPLE SITE A-LINE; BG TIDAL VOLUME(mL) 650 mL; BG TOTAL HEMOGLOBIN 11.3 g/dL (12.0-18.0); BG VENT MODE VENT - SIMV; BG VENT RATE 10 set
[2018-05-23 23:35] LABS: VANCOMYCIN TROUGH 16.2 ug/mL (5.0-10.0)
[2018-05-24] VITALS (49 sets, daily range): BP systolic 88–267; BP diastolic 28–140
[2018-05-24 00:18] LABS: BG BASE EXCESS -2.1 mmol/L (-2.0-2.0); BG CARBOXYHEMOGLOBIN 0.4 % (0.5-1.5); BG DEOXYHEMOGLOBIN 1.8 % (0.0-5.0); BG FRACTION INSPIRED OXYGEN 30; BG HCO3 ACT 23.2 mmol/L (22.0-26.0); BG METHEMOGLOBIN 0.3 % (0.0-1.5); BG OXYGEN SATURATION 98.2 % (92.0-98.5); BG OXYHEMOGLOBIN 97.5 % (94.0-97.0); BG PCO2 41.8 mmHg (35.0-45.0); BG PH 7.362 (7.350-7.450); BG SAMPLE SITE A-LINE; BG TOTAL HEMOGLOBIN 11.5 g/dL (12.0-18.0); BG VENT MODE BILEVEL; BG VENT RATE 8 set
[2018-05-24 01:18] LABS: CLARITY URINE CLOUDY (CLEAR); COLOR URINE DARK YELLOW (YELLOW); KETONES URINE TRACE (NEGATIVE); LEUKOCYTE ESTERASE URINE NEGATIVE (NEGATIVE); NITRITE URINE NEGATIVE (NEGATIVE); OCCULT BLOOD URINE 2+ (NEGATIVE); PROTEIN URINE 1+ (NEGATIVE); SPECIFIC GRAVITY URINE 1.027 (1.005-1.030)
[2018-05-24 01:23] LABS: CHLORIDE 102 mEq/L (98-107)
[2018-05-24 01:28] LABS: AMYLASE 594 IU/L (25-115); GAMMA GLUTAMYL TRANSPEPTIDASE 90 IU/L (11-50); PHOSPHORUS 6.2 mg/dL (2.5-4.9)
[2018-05-24 01:32] LABS: CREATINE KINASE 362 IU/L (39-308); CREATINE KINASE MB FRACTION 4.1 ng/mL (0.5-3.6)
[2018-05-24 01:33] LABS: HEMATOCRIT. 31.8 % (42.0-52.0); MEAN CORPUSCULAR HEMOGLOBIN 35.7 pg (28.0-32.0); MEAN CORPUSCULAR VOLUME 103.3 fL (80.0-94.0); MEAN PLATELET VOLUME 11.2 fl (7.4-10.4); RED BLOOD CELL COUNT 3.08 mill/uL (4.7-6.1); RED CELL DISTRIBUTION WIDTH 15.2 % (11.6-14.6)
[2018-05-24 01:35] LABS: INR 1.5; PARTIAL THROMBOPLASTIN TIME 42.4 sec (23.4-31.0); PROTHROMBIN TIME 15.4 sec (9.1-11.1)
[2018-05-24 01:38] LABS: PLATELET 35 x1000/uL (130-400)
[2018-05-24 02:19] LABS: NUCLEATED RED BLOOD CELLS 1 /100 WBC; PLATELET ESTIMATE DECREASED
[2018-05-24] MEDS: PIPERACILLIN/TAZ 2.25G PREMIX 50 ML IV SCH ×2 (02:45→10:36)
[2018-05-24] MEDS ORDERED: VANCOMYCIN 500 MG PREMIX 100 ML IV NR (04:00)
[2018-05-24 06:03] LABS: HEMATOCRIT. 31.2 % (42.0-52.0); HEMOGLOBIN. 10.9 g/dL (14.0-18.0); MEAN CORPUSCULAR HEMOGLOBIN 35.9 pg (28.0-32.0); MEAN CORPUSCULAR VOLUME 103.3 fL (80.0-94.0); MEAN PLATELET VOLUME 11.1 fl (7.4-10.4); RED BLOOD CELL COUNT 3.02 mill/uL (4.7-6.1); RED CELL DISTRIBUTION WIDTH 15.4 % (11.6-14.6)
[2018-05-24 06:08] LABS: INR 1.5; PARTIAL THROMBOPLASTIN TIME 42.3 sec (23.4-31.0); PROTHROMBIN TIME 15.4 sec (9.1-11.1)
[2018-05-24 06:09] LABS: BG DEOXYHEMOGLOBIN 1.8 % (0.0-5.0); BG FRACTION INSPIRED OXYGEN 30; BG HCO3 ACT 22.7 mmol/L (22.0-26.0); BG METHEMOGLOBIN 0.2 % (0.0-1.5); BG OXYGEN SATURATION 98.2 % (92.0-98.5); BG PCO2 38.4 mmHg (35.0-45.0); BG PH 7.389 (7.350-7.450); BG SAMPLE SITE A-LINE; BG TOTAL HEMOGLOBIN 11.2 g/dL (12.0-18.0); BG VENT MODE BILEVEL; BG VENT RATE 8 set
[2018-05-24 06:12] LABS: CHLORIDE 101 mEq/L (98-107)
[2018-05-24] MEDS: INSULIN REGULAR (DRIP) 100 UNITS in SODIUM CHLORIDE 0.9% 99 ML IV PRN ×2 (06:13→12:46)
[2018-05-24] MEDS: METHYLPREDNISOLONE SOD SUCC 500 MG in SODIUM CHLORIDE 0.9% 100 ML IV SCH (06:15)
[2018-05-24 06:19] LABS: AMYLASE 583 IU/L (25-115); GAMMA GLUTAMYL TRANSPEPTIDASE 88 IU/L (11-50); PHOSPHORUS 6.5 mg/dL (2.5-4.9)
[2018-05-24 06:25] LABS: PLATELET 33 x1000/uL (130-400)
[2018-05-24 06:26] LABS: CREATINE KINASE 308 IU/L (39-308); CREATINE KINASE MB FRACTION 3.9 ng/mL (0.5-3.6)
[2018-05-24 08:29] LABS: CLARITY URINE TURBID (CLEAR); COLOR URINE DARK YELLOW (YELLOW); KETONES URINE TRACE (NEGATIVE); LEUKOCYTE ESTERASE URINE TRACE (NEGATIVE); NITRITE URINE NEGATIVE (NEGATIVE); OCCULT BLOOD URINE 3+ (NEGATIVE); PROTEIN URINE 2+ (NEGATIVE); SPECIFIC GRAVITY URINE 1.035 (1.005-1.030)
[2018-05-24 09:34] LABS: BG CARBOXYHEMOGLOBIN 0.4 % (0.5-1.5); BG DEOXYHEMOGLOBIN 1.3 % (0.0-5.0); BG FRACTION INSPIRED OXYGEN 30; BG HCO3 ACT 20.9 mmol/L (22.0-26.0); BG METHEMOGLOBIN 0.2 % (0.0-1.5); BG OXYGEN SATURATION 98.7 % (92.0-98.5); BG OXYHEMOGLOBIN 98.1 % (94.0-97.0); BG PCO2 33.5 mmHg (35.0-45.0); BG PH 7.413 (7.350-7.450); BG PO2 149.5 mmHg (75.0-100.0); BG SAMPLE SITE A-LINE; BG TOTAL HEMOGLOBIN 11.4 g/dL (12.0-18.0); BG VENT MODE VENT - PCV; BG VENT RATE 8 set
[2018-05-24 09:37] LABS: PLATELET ESTIMATE MARKEDLY DECREASED
[2018-05-24] MEDS ORDERED: CEFTAZIDIME PENTAHYDRATE 2 G in DEXT 5% WATER 100 ML IV NR (09:45)
[2018-05-24] MEDS: LEVOTHYROXINE SODIUM IV SCH (10:35)
[2018-05-24] MEDS: SODIUM CHLORIDE 0.9% IV SCH (10:35)
[2018-05-24 10:45] LABS: HEMATOCRIT. 30.4 % (42.0-52.0); HEMOGLOBIN. 10.5 g/dL (14.0-18.0); MEAN CORPUSCULAR HEMOGLOBIN 35.7 pg (28.0-32.0); MEAN CORPUSCULAR VOLUME 103.1 fL (80.0-94.0); MEAN PLATELET VOLUME 12.2 fl (7.4-10.4); RED BLOOD CELL COUNT 2.95 mill/uL (4.7-6.1); RED CELL DISTRIBUTION WIDTH 15.2 % (11.6-14.6)
[2018-05-24 10:46] LABS: CLARITY URINE TURBID (CLEAR); COLOR URINE DARK YELLOW (YELLOW); KETONES URINE TRACE (NEGATIVE); LEUKOCYTE ESTERASE URINE TRACE (NEGATIVE); NITRITE URINE NEGATIVE (NEGATIVE); OCCULT BLOOD URINE 3+ (NEGATIVE); PROTEIN URINE 1+ (NEGATIVE); SPECIFIC GRAVITY URINE 1.027 (1.005-1.030); UROBILINOGEN URINE 0.2 E.U./dL (0.2-1.0)
[2018-05-24 10:49] LABS: PLATELET 32 x1000/uL (130-400)
[2018-05-24 10:52] LABS: CHLORIDE 102 mEq/L (98-107)
[2018-05-24 10:54] LABS: INR 1.5; PARTIAL THROMBOPLASTIN TIME 41.9 sec (23.4-31.0); PROTHROMBIN TIME 15.3 sec (9.1-11.1)
[2018-05-24 10:58] LABS: PHOSPHORUS 6.2 mg/dL (2.5-4.9)
[2018-05-24 10:59] LABS: GAMMA GLUTAMYL TRANSPEPTIDASE 86 IU/L (11-50)
[2018-05-24 11:00] LABS: AMYLASE 538 IU/L (25-115)
[2018-05-24 11:02] LABS: CREATINE KINASE 303 IU/L (39-308)
[2018-05-24 11:03] LABS: CREATINE KINASE MB FRACTION 3.8 ng/mL (0.5-3.6)
[2018-05-24 11:37] LABS: NUCLEATED RED BLOOD CELLS 1 /100 WBC
[2018-05-24 11:38] LABS: PLATELET ESTIMATE MARKEDLY DECREASED
[2018-05-24] MEDS ORDERED: MANNITOL 20% 500 ML IV ONE (13:24)
[2018-05-24] MEDS ORDERED: FUROSEMIDE 40MG/4ML VIAL ONE ×2 (13:25→13:28)
[2018-05-24] MEDS ORDERED: HEPARIN 10,000 UNITS/ML VIAL ONE (13:29)
[2018-05-24] MEDS ORDERED: DOPAMINE 400MG PREMIX 250 ML IV ONE (15:11)
== END 2018-05-24 16:08 | disposition expired | DRG 44 ==
LOC: MICUSO 17:03
PROC: 03HY32Z Insertion of Monitoring Device into Upper Artery, Percutaneous Approach (ICD-10-PCS; 2018-05-20)
PROC: 4A133B1 Monitoring of Arterial Pressure, Peripheral, Percutaneous Approach (ICD-10-PCS; 2018-05-20)
PROC: 4A133J1 Monitoring of Arterial Pulse, Peripheral, Percutaneous Approach (ICD-10-PCS; 2018-05-20)
PROC: 0BJ08ZZ Inspection of Tracheobronchial Tree, Via Natural or Artificial Opening Endoscopic (ICD-10-PCS; 2018-05-21)
PROC: 06H033Z Insertion of Infusion Device into Inferior Vena Cava, Percutaneous Approach (ICD-10-PCS; 2018-05-21)
PROC: B549ZZA Ultrasonography of Inferior Vena Cava, Guidance (ICD-10-PCS; 2018-05-21)
PROC: 5A1D70Z Performance of Urinary Filtration, Intermittent, Less than 6 Hours Per Day (ICD-10-PCS; principal; 2018-05-22)
PROC: 06HM33Z Insertion of Infusion Device into Right Femoral Vein, Percutaneous Approach (ICD-10-PCS; 2018-05-22)
PROC: B54BZZA Ultrasonography of Right Lower Extremity Veins, Guidance (ICD-10-PCS; 2018-05-22)
DX: I62.9 Nontraumatic intracranial hemorrhage, unspecified (principal); L53.8 Other specified erythematous conditions; R58 Hemorrhage, not elsewhere classified; R56.9 Unspecified convulsions; F10.10 Alcohol abuse, uncomplicated
CPT/HCPCS: 36415; 36569; 36600; 71045; 71250; 74176; 76700; 76937; 80202; 82150; 82248; 82330; 82375; 82550; 82553; 82805; 82962; 82977; 83605; 83615; 83735; 83930; 84100; 84484; 86850; 86900; 86927; 87070; 87077; 87186; 93005; 94003; 94640; C1725; C1752; C1769; J0610; J0713; J1250; J1265; J1642; J1644; J1815; J1940; J2543; J2930; J3370; J3430; J3480; J3490; J7030; J7040; J7050; J7060; P9047